=== PATIENT | male | born 1970 | race Caucasian/White ===

== ENCOUNTER 2022-04-20 07:10 | Day surgery (SDC) | payer BC ==
[~2022-04-20] VITALS: Ht 170.2 cm; Wt 93.6 kg
[2022-04-20] MEDS ORDERED: NORVASC 5MG5 MG/TAB PO (07:47)
[2022-04-20 08:06] VITALS: BP 147/100; PULSE 78; TEMP 97
[2022-04-20 08:50] VITALS: BP 140/95; PULSE 65; TEMP 97.1
--- NOTE | 2022-04-20 09:00 | NUR ---
0850 - PT arrives and was settled by Sharon FISCHER; per report from RN, PT OK to Uber home per DR. PT provided snack and drink; oriented to room and call jonas, within reach. Will monior per intervals.
[2022-04-20 09:05] VITALS: BP 145/103; PULSE 67
--- NOTE | 2022-04-20 09:07 | NUR ---
0905 - Vitals obtained. PT provided additonal snack and drink. PT continues to deny nausea and pain; no vomiting. PT expressed desire to be discharged. Call jonas remains within reach.
[2022-04-20 09:20] VITALS: BP 140/95; PULSE 63
--- NOTE | 2022-04-20 09:22 | NUR ---
0920 - is speaking w/ PT. Vitals obtained. IV discontinued. Catheter tip intact. Pressure bandage applied. NO redness or swelling noted. PT has finished snack and drink; continues to deny nausea and pain. DC instructions and educational material reviewed w/ PT who verbalized understanding and signed the related paperwork. Questions answered to PT satisfaction. PT refused RN assistance changing into personal clothes; call jonas remains within reach if needed.
--- NOTE | 2022-04-20 09:37 | NUR ---
PT AWAITING RIDE; VERBALIZED UNDERSTANDING TO USE CALL YANG WHEN READY; CALL YANG WITHIN REACH.
== END 2022-04-20 10:00 | disposition home or self-care (01) ==
LOC: SDCO 07:10
DX: R10.31 Right lower quadrant pain (principal); K59.00 Constipation, unspecified
CPT/HCPCS: J2704; J3010; J7030

== ENCOUNTER → 2022-04-25 | Outpatient (CLI) | payer BC ==
[~2022-04-25] MED LIST: NORVASC 5MG5 MG/TAB PO
== END ==
LOC: COL.RAD 04-23 08:30
DX: Z12.11 Encounter for screening for malignant neoplasm of colon (principal); K59.00 Constipation, unspecified; R10.31 Right lower quadrant pain
CPT/HCPCS: Q9967